=== PATIENT | female | born 1965 | race African-American/Black ===

== ENCOUNTER 2017-10-03 01:03 | Emergency (ER) | payer OTHER ==
[~2017-10-03] VITALS: Ht 180.3 cm; Wt 81.6 kg
[2017-10-03 01:14] VITALS: Ht 180.3 cm; Wt 81.6 kg
[2017-10-03 03:18] VITALS: BP 118/74
== END 2017-10-03 03:18 | disposition home or self-care (01) ==
LOC: ED 01:03
DX: S93.402A Sprain of unspecified ligament of left ankle, initial encounter (principal); G30.9 Alzheimer's disease, unspecified; E11.9 Type 2 diabetes mellitus without complications; Z88.0 Allergy status to penicillin; Z88.5 Allergy status to narcotic agent; X58.XXXA Exposure to other specified factors, initial encounter; Y93.89 Activity, other specified; Y92.89 Other specified places as the place of occurrence of the external cause; Y99.8 Other external cause status
CPT/HCPCS: J1885; Q0092

== ENCOUNTER 2017-10-03 17:49 | Emergency (ER) | payer OTHER ==
[~2017-10-03] VITALS: Ht 177.8 cm; Wt 81.6 kg
[2017-10-03 18:34] VITALS: BP 126/77; Ht 177.8 cm; Wt 81.6 kg
== END 2017-10-03 22:09 | disposition home or self-care (01) ==
LOC: ED 17:49
DX: R60.0 Localized edema (principal); F91.9 Conduct disorder, unspecified; E11.9 Type 2 diabetes mellitus without complications; Z88.0 Allergy status to penicillin; Z88.5 Allergy status to narcotic agent

== ENCOUNTER 2017-10-04 09:17 | Emergency (ER) | payer OTHER ==
[~2017-10-04] VITALS: Ht 180.3 cm; Wt 81.6 kg
[2017-10-04 09:21] VITALS: BP 156/94; Ht 180.3 cm; Wt 81.6 kg
== END 2017-10-04 09:44 | disposition left against medical advice (07) ==
LOC: ED 09:17
DX: Z53.21 Procedure and treatment not carried out due to patient leaving prior to being seen by health care provider (principal)

== ENCOUNTER 2017-10-04 23:29 | Emergency (ER) | payer OTHER ==
[~2017-10-04] VITALS: Ht 177.8 cm; Wt 79.4 kg
[2017-10-04 23:49] VITALS: BP 148/82
== END 2017-10-05 02:39 | disposition left against medical advice (07) ==
LOC: ED 23:29
DX: Z53.21 Procedure and treatment not carried out due to patient leaving prior to being seen by health care provider (principal)

== ENCOUNTER 2017-10-05 03:25 | Emergency (ER) | payer OTHER ==
[~2017-10-05] VITALS: Ht 172.7 cm; Wt 81.6 kg
[2017-10-05 03:58] VITALS: Ht 172.7 cm; Wt 81.6 kg
[2017-10-05 06:20] VITALS: BP 130/80
== END 2017-10-05 06:20 | disposition home or self-care (01) ==
LOC: ED 03:25
DX: M79.671 Pain in right foot (principal); M79.672 Pain in left foot; E11.9 Type 2 diabetes mellitus without complications; B19.20 Unspecified viral hepatitis C without hepatic coma; G30.9 Alzheimer's disease, unspecified; F02.80 Dementia in other diseases classified elsewhere, unspecified severity, without behavioral disturbance, psychotic disturbance, mood disturbance, and anxiety; Z88.0 Allergy status to penicillin; Z88.5 Allergy status to narcotic agent